=== PATIENT | female | born 1945 | race Two or more races ===

== ENCOUNTER 2018-07-31 05:09 | Day surgery (SDC) | payer OTHER ==
[~2018-07-31 05:09] MED LIST: AMILODIPINE PO; ANASTROZOLE1 MG PO; ASPIR 8181 MG PO; FOSINOPRIL SODI40 MG PO; GABAPENT PO; HUMALOG PO; LYRICA PO; METFOR PO; [UNRECOGNIZED DRUG - OTHER] PO
== END 2018-07-31 12:05 | disposition home or self-care (01) ==
LOC: CIR.AMB 05:09
DX: N95.0 Postmenopausal bleeding (principal)

== ENCOUNTER 2021-11-15 07:47 | Emergency (ER) | payer OTHER ==
[~2021-11-15] VITALS: Ht 165.1 cm; Wt 65.8 kg
== END 2021-11-15 10:37 | disposition home or self-care (01) ==
LOC: ER 07:47
DX: S52.501A Unspecified fracture of the lower end of right radius, initial encounter for closed fracture (principal); W18.30XA Fall on same level, unspecified, initial encounter; Y93.01 Activity, walking, marching and hiking; Y92.413 State road as the place of occurrence of the external cause; E11.9 Type 2 diabetes mellitus without complications; Z79.4 Long term (current) use of insulin; I10 Essential (primary) hypertension

== ENCOUNTER 2021-11-17 09:01 | Outpatient (CLI) | payer OTHER | END 2021-11-17 09:13 | disposition home or self-care (01) | LOC: RAD 09:01 | PROVIDERS: ATTEND Orthopaedic Surgery | DX: S52.231A Displaced oblique fracture of shaft of right ulna, initial encounter for closed fracture (principal) ==

== ENCOUNTER 2021-11-21 07:40 | Outpatient (CLI) | payer OTHER | END 2021-11-21 07:48 | disposition home or self-care (01) | LOC: RAD 07:40 | PROVIDERS: ATTEND Orthopaedic Surgery | DX: S00.33XA Contusion of nose, initial encounter (principal); S52.531A Colles' fracture of right radius, initial encounter for closed fracture ==

== ENCOUNTER 2021-12-20 11:34 | Outpatient (CLI) | payer OTHER | END 2021-12-20 11:35 | disposition home or self-care (01) | LOC: NUCLEAR 11:34 | PROVIDERS: ATTEND Orthopaedic Surgery | DX: M81.0 Age-related osteoporosis without current pathological fracture (principal); Z88.0 Allergy status to penicillin ==

== ENCOUNTER 2022-01-02 09:39 | Outpatient (CLI) | payer OTHER | END 2022-01-02 09:40 | disposition home or self-care (01) | LOC: LAB 09:39 | PROVIDERS: ATTEND Orthopaedic Surgery | DX: E55.9 Vitamin D deficiency, unspecified (principal); M85.9 Disorder of bone density and structure, unspecified; E56.1 Deficiency of vitamin K; E21.3 Hyperparathyroidism, unspecified; E88.9 Metabolic disorder, unspecified; M81.8 Other osteoporosis without current pathological fracture ==